=== PATIENT | male | born 1960 | race Caucasian/White ===

== ENCOUNTER 2017-03-29 16:56 | Emergency (ER) | payer MEDICARE, OTHER ==
[2017-03-29] MEDS ORDERED: Lidocaine 1% 5ml(IM or SUTURE)(PAIN CLINIC) ONE (17:23)
[2017-03-29] MEDS ORDERED: Lidocaine 1% 5ml(IM or SUTURE)(PAIN CLINIC) IJ ONE (17:29)
--- NOTE | 2017-03-29 17:38 | ED Physician Documentation ---
Hand Injury - HISTORIAN Historian: patient - HPI Stated Complaint: puncture wound/lac Chief Complaint: Hand Injury Additional Information: puncture type laceration from drill bit, Left 3rd digit Onset: just prior to arrival Where: home Severity: mild Duration: persistent since Context: laceration Location of Injury: L fingers Modifying Factors: none Further Comments: no - ROS CONST: no problems GI/: denies: nausea NEURO: none CVS/RESP: none EYES/ENT: none MS/SKIN/LYMPH: none - PAST HX Past History: Rt handed Allergies/Adverse Reactions: Allergies Allergy/AdvReac Type Severity Reaction Status Date / Time No Known Allergies Allergy Verified 03/29/17 17:20 Home Medications: Ambulatory Orders Medication Instructions Recorded Amitriptyline HCl [Elavil] 25 mg PO HS PRN 03/29/17 Omeprazole [Prilosec] 20 mg PO DAILY PRN 03/29/17 - SOCIAL HX Smoking History: non-smoker Alcohol Use: rarely Drug Use: none - FAMILY HX Family History: none - VITAL SIGNS Vital Signs: Vital Signs Temp Pulse Resp BP Pulse Ox 98.7 F 71 18 145/74 98 03/29/17 17:12 03/29/17 17:12 03/29/17 17:12 03/29/17 17:12 03/29/17 17:12 - REVIEWED ASSESSMENTS Nursing Assessment Reviewed: Yes Vitals Reviewed: Yes Procedures Wound Location: upper extremity Wound Length: 2cm Wound's Depth, Shape: irregular Wound Explored: clean Betadine Prep?: Yes Anesthesia: 1% Lidocaine Wound Debrided: minimal Wound Repaired With: sutures Suture Size/Type: 4:0, nylon Number of Sutures: 3 Layer Closure?: No ED Results Lab/Radiology - Orders Orders: ED Orders Category Date Time Status Lidocaine 1% 5ml(IM or SUTURE) [Xylocaine] Med 03/29/17 17:23 Discontinued 50 mg .ROUTE .STK-MED ONE Lidocaine 1% 5ml(IM or SUTURE) [Xylocaine] Med 03/29/17 17:29 Discontinued 50 mg IJ NOW ONE Hand Injury Physical Exam - Exam General Appearance: no acute distress, alert Hand: other (2cm laceration of gleason prox 3rd digit) Wrist: normal inspection Neuro: sensation nml Vascular: no vascular compromise Tendons: tendon function nml Forearm/Elbow/Arm: uninjured above wrist Skin: warm/dry, normal color Head/ENT: nml inspection Neck/Back: nml inspection Resp/CVS: chest non-tender Abdomen: non-tender Discharge Clincal Impression: Laceration of finger of left hand Qualifiers: Encounter type: initial encounter Finger: middle finger Damage to nail status: without damage Foreign body presence: without foreign body Qualified Code(s): S61.213A - Laceration without foreign body of left middle finger without damage to nail, initial encounter Referrals: Primary Doctor,No [Primary Care Provider] - 2 Days Home Medications: Ambulatory Orders Amitriptyline HCl [Elavil] 25 mg PO HS PRN 03/29/17 Omeprazole [Prilosec] 20 mg PO DAILY PRN 03/29/17 Condition: Good Disposition: 01 HOME, SELF-CARE Decision to Admit: NO Date of Decison to Admit: 03/29/17 Decision Time: 17:40
[2017-03-29 17:54] VITALS: BP 132/72
== END 2017-03-29 17:53 | disposition home or self-care (01) ==
LOC: ED 16:56 → EDSTATUS 16:57 → ED 17:53
DX: S61.213A Laceration without foreign body of left middle finger without damage to nail, initial encounter (principal); X58.XXXA Exposure to other specified factors, initial encounter; Y93.9 Activity, unspecified; Y99.9 Unspecified external cause status
CPT/HCPCS: 12001; 99283